=== PATIENT | male | born 2000 | race Caucasian/White ===

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

== ENCOUNTER → 2023-03-28 15:21 | Outpatient (CLI) | payer BC, SELFPAY ==
--- NOTE | ~2023-03-28 | XR_ITS ---
EXAM: XR thoracic spine 3V DATE: 03/28/2023 15:42 HISTORY: chronic pain midthoracic spine . COMPARISON: None available. FINDINGS: Lateral view somewhat limited by summation artifact and technique. Vertebral body alignment intact. Mild scoliosis. Vertebral body heights preserved. No disc space narrowing. No traumatic rupinder lignment or fracture. Visualized lung parenchyma is clear. IMPRESSION: Mild thoracic scoliosis, otherwise unremarkable thoracic spine radiograph findings. Reviewed, dictated and finalized at location K. IMPRESSION: Mild thoracic scoliosis, otherwise unremarkable thoracic spine radi ograph findings.
== END ==
PROVIDERS: PCP Family Medicine; Visit Provider Family Medicine
DX: M54.6 Pain in thoracic spine (principal); M41.9 Scoliosis, unspecified
CPT/HCPCS: 72072

== ENCOUNTER 2024-01-13 08:18 | Outpatient (CLI) | payer BC, SELFPAY ==
--- NOTE | ~2024-01-13 | US_ITS ---
Limited Abdominal Sonogram: Real-time sonographic imaging of the right upper quadrant was performed. Clinical History: Subcentimeter liver lesions on MRI Findings: The liver appears normal with no evidence of mass lesion or bile duct dilatation. Main por deepa vein demonstrates normal direction of flow. The gallbladder is well distended, and appears normal with no evidence of gallstone or wall thickening. The common bile duct measures 3 mm. The visualize d pancreas, aorta, and IVC are unremarkable. Right kidney measures 9.9 cm in length, without hydronep hrosis. Impression: No significant abnormality seen. Reviewed, dictated and finalized at location . Impression: No significant abnormality seen.
== END 2024-01-13 08:19 ==
PROVIDERS: PCP Family Medicine; Visit Provider Family Medicine
DX: K76.9 Liver disease, unspecified (principal)
CPT/HCPCS: 76705

== ENCOUNTER 2024-01-22 18:00 | Emergency (ER) | payer BC, SELFPAY ==
--- NOTE | ~2024-01-22 | CT_ITS ---
EXAMINATION: CT abdomen pelvis w con DATE: 01/22/2024 19:51 INDICATION: Right lower quadrant pain. Right inguinal pain. TECHNIQUE: Computed tomography (CT) of the abdomen and pelvis was performed with 100 cc Omnipaque 350 intravenous contrast. The dose-length product was 304.25 mGy-cm. Automated exposure control and iter ative reconstruction technique were employed. COMPARISON: None. FINDINGS: Lung bases are unremarkable. Heart size normal. No significant pleural or pericardial effus ion. Enlarged right inguinal lymph nodes, likely reactive. Dependent atelectasis of the lung bases. H eart size normal. No significant pleural or pericardial effusion. The liver, spleen, pancreas, adrenal glands and kidneys are unremarkable. Gallbladder is present. Sma ll subcentimeter hypodensity of the right hepatic lobe, most likely benign cysts. The spleen, pancrea s, adrenal glands are unremarkable. There is moderate gastric distention with air-fluid levels. The s mall bowel is dilated with air-fluid levels. No transition site. There is left inguinal lymphadenopat hy. No significant vascular abnormality. The appendix is not positively visualized. There is no joanna cecal inflammatory change to suggest appendicitis. No acute osseous abnormality. Levoscoliosis. IMPRESSION: 1. Air-fluid levels with moderately distended stomach and small bowel. No transition site. No definit e obstruction. Consider gastroenteritis and ileus. 2: Bilateral inguinal lymphadenopathy, likely reactive. Reviewed, dictated and finalized at location A. IMPRESSION: 1. Air-fluid levels with moderately distended stomach and small bowel. No trans ition site. No definite obstruction. Consider gastroenteritis and ileus. 2: Bilateral inguinal lymphadenopathy, likely reactive.
[2024-01-22 18:06] VITALS: BP 130/68; PULSE 69; RESP 17; TEMP 36.6; O2SAT 100
--- NOTE | 2024-01-22 18:35 | ED.ABDPAIN ---
HPI - Abdominal Pain General Chief Complaint: Abdominal Pain Stated Complaint: RLQ pain, sent from Urgent Care Time Seen by Provider: 01/22/24 18:09 Source: patient Mode of arrival: ambulatory Limitations: no limitations History of Present Illness HPI narrative: Patient is a 23-year-old male who presents the ED with report of right lower quadrant abdominal pain. Patient reports the pain began this morning while having a bowel movement. He notes he was straining at that time and had a large BM. Denied rectal bleeding or melena. Pain has been constant since then. He does feel a slight bulge in his right groin region. Reports dysuria over the last couple of days. Denies any currently. Reports nausea this morning, 1 episode of vomiting last night. Denies fevers, hematuria. Related Data Allergies Allergy/AdvReac Type Severity Reaction Status Date / Time venancio Allergy Intermediate hives Uncoded 01/22/24 18:08 Review of Systems Review of Systems: CONSTITUTIONAL: Denies fever, chills, or sweats. GASTROINTESTINAL: See HPI. GENITOURINARY: See HPI. NEUROLOGIC: Denies headache, dizziness, numbness, or weakness. All systems reviewed & are unremarkable except as noted in HPI and below PMFSH Past Medical History Medical History Acne vulgaris Acute bronchitis Acute non-recurrent maxillary sinusitis Attention deficit hyperactivity disorder (ADHD), combined type, moderate BMI 21.0-21.9, adult BMI 22.0-22.9, adult BMI 23.0-23.9, adult Chronic anxiety with OCD Chronic depression Chronic midline thoracic back pain X-ray of the thoracic spine on 03/28/2023 was negative except for mild scoliosis. MRI of the thoracic spine on 07/18/2023 was unremarkable. Contusion of pelvic region (12/31/20) Encounter for general adult medical examination w/o abnormal findings Encounter for wellness examination Fatigue (~12/2022) Gastritis Lesion of liver (07/18/23) multiple subcentimeter lesions of the liver on MRI of the thoracic spine on 07/18/2023 cyst, lipoma, hemangioma? Ultrasound of the liver on 01/13/2024 was normal. Nausea and vomiting Neck pain, acute (~04/05/23) x-ray of the cervical spine on 04/05/2023 was unremarkable Seasonal allergic rhinitis Social History Social History Smoking status: Never smoker Alcohol intake: never Substance use: never Lack of Transportation: No Lack of Food: Never True Current Housing: Decline to Answer Concerned About Future Housing: Decline to Answer Difficulty Paying Gas/Electric Bills: Decline to Answer Difficulty Paying for Meds: No Currently Unemployed: Decline to Answer Education: Bachelor's Degree Difficulty w/ Childcare or Family Care: No Exam Narrative: GENERAL: Well appearing, thin, non-toxic, in no acute distress. HEAD: Normocephalic, atraumatic. RESPIRATORY: Airway patent, respirations nonlabored. Clear to auscultation bilaterally, no rales, rhonchi, wheezing. CARDIOVASCULAR: Regular rate and rhythm ABDOMINAL: Soft, TTP in R lower abdomen, discomfort reported in R lower abdomen with palpation of LLQ. Mild swelling and focal tenderness in R inguinal canal, area of mild induration, hernia vs lymphadenopathy?. Normoactive BS. MUSCULOSKELETAL: Moves all extremities. No gross deformities. SKIN: Warm, dry, normal color. NEURO: A&O X3. Speech clear. PSYCHIATRIC: Appropriate mood and affect. Normal interaction. Course Vital Signs Vital signs: Vital Signs Temperature 97.9 F 01/22/24 18:06 Pulse Rate 69 01/22/24 18:06 Respiratory Rate 17 01/22/24 18:06 Blood Pressure 130/68 01/22/24 18:06 Pulse Oximetry 100 01/22/24 18:06 Oxygen Delivery Room Air 01/22/24 18:06 Temperature 97.9 F 01/22/24 18:06 Pulse Rate 69 01/22/24 18:06 Respiratory Rate 17 01/22/24 18:06 Blood Pressure 121/77 01/22/24 19:15 Pulse
[2024-01-22 19:10] LABS: Basophils Percent Auto 0.4 % (0.2-1.2); Eosinophils Absolute Auto 0.2 K/mm3 (0-0.3); Eosinophils Percent Auto 2.4 % (0-4.4); Hematocrit 42.2 % (42.0-52.0); Hemoglobin 14.5 g/dL (14.0-18.0); Immature Granulocyte Absolute 0.02 K/mm3 (0.00-0.031); Immature Granulocyte Percent A 0.3 % (0-0.5); Lymphocytes Absolute Auto 1.41 K/mm3 (0.9-3.2); Lymphocytes Percent Auto 19.5 % (18.3-44.2); Mean Corpuscular HGB Conc 34.4 g/dl (32-36); Mean Corpuscular Hemoglobin 31.3 pg (26-34); Mean Corpuscular Volume 91.1 fl (80-100); Mean Platelet Volume 9.7 fl (7.4-10.4); Monocytes Absolute Auto 0.7 K/mm3 (0.1-0.6); Monocytes Percent Auto 9.1 % (2.6-8.5); Neutrophils Absolute Auto 4.9 K/mm3 (1.3-6.7); Neutrophils Percent Auto 68.3 % (45.5-73.1); Platelet Count Result 190 k/mm3 (150-375); Red Blood Count 4.63 M/mm3 (4.6-6.20); Red Cell Distribution Width 12.1 % (11.5-14.5); White Blood Count 7.2 K/mm3 (4.5-10.0)
[2024-01-22 19:15] VITALS: BP 121/77
[2024-01-22 19:23] LABS: Alanine Aminotransferase 16 U/L (6-50); Albumin Level 4.6 g/dL (3.5-5.1); Alkaline Phosphatase 54 U/L (38-126); Anion Gap 9 mmol/L (4-12); Aspartate Amino Transferase 21 U/L (17-59); Bilirubin,Total 0.4 mg/dL (0.2-1.3); Blood Urea Nitrogen 17 mg/dL (9-20); Calcium 9.5 mg/dL (8.4-10.2); Carbon Dioxide 26 mmol/L (22-30); Chloride 106 mmol/L (98-107); Estimated CRCL calculation 107 ml/min; Estimated Glomerular Filt Rate > 60; Glucose 94 mg/dL (65-110); Lipase 130 U/L (23-300); Potassium 3.9 mmol/L (3.4-5.0); Sodium 141 mmol/L (137-145)
[2024-01-22 19:33] LABS: Appearance Urine Cloudy (Clear); Bacteria Urine None Seen /hpf; Bilirubin Urine Negative (Negative); Blood Urine Negative (Negative); Color Urine Yellow (Yellow); Glucose Urine UA Negative (Negative); Ketones Urine Negative (Negative); Leukocyte Esterase Ur Negative LEU/UL (Negative); Nitrate Urine Negative (Negative); Non Pathogenic Casts 0-2; Protein Urine Negative (Negative); RBC Urine 0-2 /hpf (0-2); Specific Grav Ur 1.021 (1.001-1.035); Squamous Epithelial Cell Urine None Seen /hpf (Few); WBC Urine 0-5 /hpf (0-3)
[2024-01-22 19:59] LABS: Add Urine Microscopic? YES
[2024-01-22 21:34] VITALS: BP 128/71; PULSE 88; RESP 17; TEMP 37.2; O2SAT 98
== END 2024-01-22 21:36 | disposition home or self-care (01) ==
PROVIDERS: Emergency Provider Physician Assistant; PCP Family Medicine
DX: K52.9 Noninfective gastroenteritis and colitis, unspecified (principal); R59.0 Localized enlarged lymph nodes; R10.31 Right lower quadrant pain; F90.9 Attention-deficit hyperactivity disorder, unspecified type; F32.A Depression, unspecified
CPT/HCPCS: 36415; 74177; 80053; 81001; 83690; 85025; 99284; Q9967